=== PATIENT | female | born 1995 | race Caucasian/White ===

== ENCOUNTER → 2019-01-16 07:10 | Outpatient (CLI) | payer OTHER, SELFPAY ==
--- NOTE | 2019-01-16 07:12 | DI.US.S_ITS ---
PROCEDURE: US OB <= 14 WEEKS FETUS INDICATIONS: DATES OUTSIDE/PRIOR DATING DATA: Last menstrual period (LMP): 12/06/18. LMP-based estimated date of delivery (NADINE): 09/12/19. First dating scan (date and location): 01/16/19. Estimated date of delivery (NADINE) from first dating scan: 09/12/19. TECHNIQUE: Real-time scanning was performed of the fetus and maternal pelvic organs, with image documentation. Endovaginal scanning was also performed to better visualize the fetus and maternal ovaries. COMPARISON: None. FINDINGS: Embryo: Examination shows single intrauterine gestational sac with fetus and yolk sac seen. heart rate is 82 beats per minute. Brodnax-rump length measures 3 mm, with estimated gestational age of 5 weeks 6 days. There is no gross apparent gestational hemorrhage. Measurement variability in dating: +/- 4 weeks by LMP, +/- 7 days by mean sac diameter (use before 6 weeks gestation if crown-rump length not able to be measured), +/- 5 days by crown-rump length (up to 8 weeks 6 days gestation), +/- 7 days by crown-rump length (up to 13 weeks 6 days gestation). Maternal organs: 2.3 x 2 x 2 cm corpus luteum cyst in left ovary is seen. Right ovary is within normal limits. Limited images through the kidneys demonstrate no hydronephrosis. IMPRESSION: 1. Single live intrauterine with fetus a yolk sac seen. heart rate is 82 days per minute. Estimated gestational age is 5 weeks 6 days. 2. 2.3 x 2 x 2 cm corpus luteum cyst in left ovary. Dictated by: Valentin Erickson M.D. on 01/16/2019 at 9:32 Approved by: Valentin Erickson M.D. on 01/16/2019 at 9:35
== END ==
PROVIDERS: PCP Family Medicine; Visit Provider Family Medicine
DX: Z34.01 Encounter for supervision of normal first pregnancy, first trimester (principal); Z3A.01 Less than 8 weeks gestation of pregnancy
CPT/HCPCS: 76801; 76817

== ENCOUNTER → 2019-02-08 07:45 | Outpatient (CLI) | payer OTHER, SELFPAY ==
--- NOTE | 2019-02-08 07:46 | DI.US.S_ITS ---
PROCEDURE: US OB <= 14 WEEKS FETUS INDICATIONS: VIABILITY OUTSIDE/PRIOR DATING DATA: Last menstrual period (LMP): 12/06/18. LMP-based estimated date of delivery (NADINE): 09/12/19. First dating scan (date and location): 01/16/19. Estimated date of delivery (NADINE) from first dating scan: 09/12/19. TECHNIQUE: Real-time scanning was performed of the fetus and maternal pelvic organs, with image documentation. COMPARISON: [facility], , OB <= 14 WEEKS FETUS, 01/16/2019, 7:23. FINDINGS: Embryo: Single living intrauterine fetus is present with a crown-rump length measuring 2.5 cm, 9 weeks 1 day demonstrating expected interval growth. heart rate measures 160 beats per minute Measurement variability in dating: +/- 4 weeks by LMP, +/- 7 days by mean sac diameter (use before 6 weeks gestation if crown-rump length not able to be measured), +/- 5 days by crown-rump length (up to 8 weeks 6 days gestation), +/- 7 days by crown-rump length (up to 13 weeks 6 days gestation). Maternal organs: Ovaries grossly unremarkable. Limited images through the kidneys demonstrate no hydronephrosis. IMPRESSION: Single living intrauterine fetus as above. Dictated by: Werner Holder M.D. on 02/09/2019 at 9:08 Approved by: Werner Holder M.D. on 02/09/2019 at 9:16
== END ==
PROVIDERS: PCP Family Medicine; Visit Provider Family Medicine
DX: Z34.91 Encounter for supervision of normal pregnancy, unspecified, first trimester (principal); Z3A.09 9 weeks gestation of pregnancy
CPT/HCPCS: 76801

== ENCOUNTER → 2019-02-11 09:58 | Outpatient (CLI) | payer OTHER, SELFPAY ==
[2019-02-11 11:04] LABS: Add Manual Diff / Slide Review NO; Basophils Absolute Auto 0 /uL (0-100); Basophils Percent Auto 0.4 % (0-2); Eosinophils Absolute Auto 100 /uL (0-450); Eosinophils Percent Auto 1.6 % (2-4); Hematocrit 38.7 % (36-46); Hemoglobin 13.1 g/dL (12.0-16.0); Lymphocytes Absolute Auto 1500 /uL (1100-4500); Lymphocytes Percent Auto 18.1 % (25-40); Mean Corpuscular HGB Conc 33.8 % (30-36); Mean Corpuscular Hemoglobin 29.4 PG (26-34); Monocytes Absolute Auto 500 /uL (0-900); Monocytes Percent Auto 6.4 % (3-14); Neutrophils Absolute Auto 5900 /uL (1500-7000); Neutrophils Percent Auto 73.5 % (50-75); Red Blood Cell Count 4.45 X10^6/uL (4.0-5.2); Red Cell Distribution Width 13.3 % (11.6-14.8); White Blood Cell Count 8.1 X10^3/uL (4.5-11.0)
[2019-02-11 11:05] LABS: Appearance Urine UA CLEAR; Bilirubin Urine UA NEGATIVE (NEGATIVE); Color Urine UA YELLOW; Glucose Urine UA NEGATIVE (Negative); Ketones Urine UA NEGATIVE (NEGATIVE); Leukocyte Esterase Urine UA NEGATIVE (NEGATIVE); Nitrite Urine UA NEGATIVE (Negative); Occult Blood Urine UA NEGATIVE (Negative); Protein Urine UA NEGATIVE (Negative); Urobilinogen Urine UA 0.2 E.U./dL (0.2)
[2019-02-11 11:37] LABS: Platelet Count 134 X10^3/uL (150-400)
[2019-02-11 15:45] LABS: Hepatitis B Surface Antigen NEGATIVE s/c (NEGATIVE); Rubella Antibody IgG 46.7 IU/mL (>15)
[2019-02-11 16:02] LABS: HIV 1 & 2 Ab/Ag 4th Gen Combo NEGATIVE (NEGATIVE); Hep C Virus Ab w/Reflex Quant NEGATIVE s/c (NEGATIVE)
[2019-02-13 14:18] LABS: RPR Screen Nonreactive (Nonreactive)
== END ==
PROVIDERS: PCP Family Medicine; Visit Provider Family Medicine
DX: Z34.01 Encounter for supervision of normal first pregnancy, first trimester (principal)
CPT/HCPCS: 36415; 80055; 81003; 86787; 86803; 86850; 86900; 86901; 87086; 87389

== ENCOUNTER → 2019-03-26 11:06 | Outpatient (CLI) | payer OTHER, SELFPAY | PROVIDERS: PCP Family Medicine | DX: Z23 Encounter for immunization (principal) | CPT/HCPCS: 90471; 90686 ==

== ENCOUNTER → 2019-04-04 10:15 | Outpatient (CLI) | payer OTHER, SELFPAY ==
[2019-04-07 15:24] LABS: AFP, Serum 35.2 ng/mL; Brief History NTD NG; Calc Gestational Age 15.9; Cigarette Smoker NO; Donated Egg NG; Donor Egg Age NG; Estriol, Free 1.19 ng/mL; Inhibin A, Dimeric 117 pg/mL; Maternal Weight 140 lbs; Number of Fetuses 1; Previous Pregnancy Down Syndro NG; hCG, MoM 0.73; hCG, Serum 27.2 IU/mL
== END ==
PROVIDERS: PCP Family Medicine; Visit Provider Family Medicine
DX: Z34.90 Encounter for supervision of normal pregnancy, unspecified, unspecified trimester (principal); Z3A.16 16 weeks gestation of pregnancy
CPT/HCPCS: 36415; 82105; 82677; 84702; 86336

== ENCOUNTER → 2019-04-25 07:47 | Outpatient (CLI) | payer OTHER, SELFPAY ==
--- NOTE | 2019-04-25 07:47 | DI.US.S_ITS ---
PROCEDURE: OB >= 14 WEEKS FETUS INDICATIONS: ANATOMY OUTSIDE/PRIOR DATING DATA: Last menstrual period (LMP): 12/06/18. LMP-based estimated date of delivery (NADINE): 09/12/19 First dating scan (date and location): 01/16/19. Estimated date of delivery (NADINE) from first dating scan: 09/12/19. TECHNIQUE: Real-time scanning was performed of the fetus, with image documentation and biometric measurements. Endovaginal scanning: Not performed COMPARISON: [facility], OB <= 14 WEEKS FETUS, 02/08/2019, 7:57. [facility], OB <= 14 WEEKS FETUS, 01/16/2019, 7:23. FINDINGS: General: A single living intrauterine gestation is present. Presentation: Vertex. Placenta: Placental position is posterior, without previa. Amniotic fluid index: 12.7 cm, normal range is 5-24 cm. heart rate: 155 beats per minute. Maternal cervical canal: 3.7 cm long. Normal lower limit is 2.5 cm. biometrics: Biparietal diameter: 4.9 cm, 20 weeks 6 days Head circumference: 18.4 cm, 20 weeks 6 days Abdominal circumference: 15.8 cm, 21 weeks zero days Femur length: 3.6 cm, 21 weeks 2 days Estimated gestational age from initial scan: 20 weeks zero days Composite gestational age from present scan: 21 weeks zero days Estimated weight and percentile: 395 g, 94th percentile Measurement variability for biometric dating: +/- 7 days from 14 weeks to 15 weeks 6 days gestation, +/- 10 days from 16 weeks to 21 weeks 6 days gestation, +/- 2 weeks from 22 weeks to 27 weeks 6 days gestation, +/- 3 weeks for 28 weeks gestation or later. weight reference: 4500 g or EFW >90/95% is considered macrosomia or large for gestational age. EFW <10% is small for gestational age. EFW 5% or less is considered intra-uterine growth restriction. Anatomic survey: Neuro: Ventricles are non-dilated at less than 10 mm. Cisterna magna is normal at 3-11 mm. Cerebellum is normal in size and morphology. Nuchal skin fold: Normal at less than 6 mm between 14-21 weeks gestational age. Face: Nose and lips, facial profile are normal. Spine: No evidence for spina bifida. Heart: 4-chambered heart is present, with normal ventricular outflow tracts. Diaphragm: Diaphragm is intact. Stomach: Left-sided stomach is present. Kidneys: No hydronephrosis. Normal is less than 5 mm in 2nd trimester, less than 7 mm in 3rd trimester. Cord: 3-vessel cord has orthotopic insertion. Bladder: Normal in size. Extremities: All 4 extremities identified. Mild right maternal hydronephrosis. IMPRESSION: Single living intrauterine fetus in vertex presentation. Estimated weight at the 94th percentile. If clinically warranted, followup growth assessment ultrasound could be performed in 3-4 weeks to exclude developing macrosomia. Normal anatomic survey. Mild right maternal hydronephrosis presumably related. Dictated by: Werner Holder M.D. on 04/25/2019 at 10:28 Approved by: Werner Holder M.D. on 04/25/2019 at 10:41
== END ==
PROVIDERS: PCP Family Medicine; Visit Provider Family Medicine
DX: Z36.89 Encounter for other specified antenatal screening (principal); Z3A.21 21 weeks gestation of pregnancy
CPT/HCPCS: 76811

== ENCOUNTER → 2019-06-06 09:14 | Outpatient (CLI) | payer OTHER, SELFPAY ==
[2019-06-06 10:37] LABS: Hematocrit 35.4 % (36-46); Hemoglobin 12.2 g/dL (12.0-16.0)
[2019-06-06 10:48] LABS: GTT (PREG) 1 Hour PP 50gm Dose 59 mg/dL (76-139)
== END ==
PROVIDERS: PCP Family Medicine; Visit Provider Family Medicine
DX: Z34.90 Encounter for supervision of normal pregnancy, unspecified, unspecified trimester (principal); Z3A.26 26 weeks gestation of pregnancy
CPT/HCPCS: 36415; 82950; 85014; 85018

== ENCOUNTER → 2019-06-18 15:17 | Outpatient (CLI) | payer OTHER, SELFPAY ==
--- NOTE | 2019-06-18 15:18 | DI.US.S_ITS ---
PROCEDURE: US OB LIMITED INDICATIONS: follow up growth OUTSIDE/PRIOR DATING DATA: Last menstrual period (LMP): 12/06/18. LMP-based estimated date of delivery (NADINE): 09/12/19 First dating scan (date and location): 01/16/19. Estimated date of delivery (NADINE) from first dating scan: 09/12/19. TECHNIQUE: Real-time scanning was performed of the fetus, with image documentation and biometric measurements. Biophysical profile was also obtained. Endovaginal scanning: Not performed COMPARISON: [facility], OB >= 14 WEEKS FETUS, 04/25/2019, 8:05. [facility], OB <= 14 WEEKS FETUS, 02/08/2019, 7:57. [facility], OB <= 14 WEEKS FETUS, 01/16/2019, 7:23. FINDINGS: General: A single living intrauterine gestation is present. Presentation: Vertex. Placenta: Placental position is posterior, without previa. Amniotic fluid index: 15.8 cm, normal range is 5-24 cm. heart rate: 152 beats per minute. Maternal cervical canal: Not visualized biometrics: Biparietal diameter: 31 weeks 1 day Head circumference: 31 weeks 1 day Abdominal circumference: 29 weeks 1 day Femur length: 29 weeks 2 days Estimated gestational age from initial scan: 27 weeks and 5 days. Composite gestational age from present scan: 30 weeks 1 day Estimated weight and percentile: 1413 gm, 95th percentile Measurement variability for biometric dating: +/- 7 days from 14 weeks to 15 weeks 6 days gestation, +/- 10 days from 16 weeks to 21 weeks 6 days gestation, +/- 2 weeks from 22 weeks to 27 weeks 6 days gestation, +/- 3 weeks for 28 weeks gestation or later. weight reference: 4500 g or EFW >90/95% is considered macrosomia or large for gestational age. EFW <10% is small for gestational age. EFW 5% or less is considered intra-uterine growth restriction. Miscellaneous: Mild hydronephrosis in maternal right kidney has improved. There is trace right renal pelvises. IMPRESSION: 1. A single living intrauterine gestation is redemonstrated. 2. growth at the 95th percentile concerning for macrosomia. Recommend close clinical and imaging followup. 3. Mild maternal right hydronephrosis has improved. Dictated by: Sowmya Charlton M.D. on 06/18/2019 at 17:50 Approved by: Sowmya Charlton M.D. on 06/18/2019 at 17:56
== END ==
PROVIDERS: PCP Family Medicine; Visit Provider Family Medicine
DX: Z36.2 Encounter for other antenatal screening follow-up (principal); Z3A.30 30 weeks gestation of pregnancy
CPT/HCPCS: 76815

== ENCOUNTER → 2019-07-10 14:01 | Outpatient (CLI) | payer OTHER, SELFPAY ==
--- NOTE | 2019-07-26 09:41 | P.HOLT.S_ITS ---
Radiation Protection Engineer Report Referral & Results Date Patient Seen: 07/10/19 Requesting provider: Faith Lewis Indication: Palpitations Duration of monitoring (days): 7 Diary information: There were 3 patient diary entries and 3 patient triggered events These events and entries were associated with sinus rhythm only Data: Minimum heart rate identified was 51 beats per minute at 07:05 on 07/17/2019 Maximum sinus heart rate was 170 beats per minute at 09:53 on 07/12/2019 Less than 1% of identified beats rather ventricular supraventricular ectopic in origin Impression: No cardiac dysrhythmia to correlate with symptoms of palpitations identified on this study. No other serious or notable cardiac dysrhythmias identified either.
== END ==
PROVIDERS: PCP Family Medicine; Visit Provider Family Medicine
DX: R00.2 Palpitations (principal)
CPT/HCPCS: 0296T; 0298T

== ENCOUNTER → 2019-07-31 07:13 | Outpatient (CLI) | payer OTHER, SELFPAY ==
--- NOTE | 2019-07-31 07:13 | DI.US.S_ITS ---
PROCEDURE: US OB LIMITED INDICATIONS: MACROSOMIA OUTSIDE/PRIOR DATING DATA: Last menstrual period (LMP): 12/06/18. LMP-based estimated date of delivery (NADINE): 09/12/19 First dating scan (date and location): 01/16/19. Estimated date of delivery (NADINE) from first dating scan: 09/12/19. TECHNIQUE: Real-time scanning was performed of the fetus, with image documentation and biometric measurements. Endovaginal scanning: No COMPARISON: None. FINDINGS: General: A single living intrauterine gestation is present. Presentation: Vertex. Placenta: Placental position is posterior, without previa. Amniotic fluid index: 14.3 cm, normal range is 5-24 cm. heart rate: 147 beats per minute. Maternal cervical canal: 4.4 cm long. Normal lower limit is 2.5 cm. biometrics: Biparietal diameter: 36 weeks 4 days Head circumference: 35 weeks 4 days Abdominal circumference: 35 weeks 5 days Femur length: 36 weeks 2 days Estimated gestational age from initial scan: 33 weeks 6 days Composite gestational age from present scan: 36 weeks 0 days Estimated weight and percentile: 2 790 g; 93rd percentile Measurement variability for biometric dating: +/- 7 days from 14 weeks to 15 weeks 6 days gestation, +/- 10 days from 16 weeks to 21 weeks 6 days gestation, +/- 2 weeks from 22 weeks to 27 weeks 6 days gestation, +/- 3 weeks for 28 weeks gestation or later. weight reference: 4500 g or EFW >90/95% is considered macrosomia or large for gestational age. EFW <10% is small for gestational age. EFW 5% or less is considered intra-uterine growth restriction. Other: Not applicable. IMPRESSION: 1. Single living IUP redemonstrated and interval growth it is upper limits of normal with estimated weight at the 93rd percentile. Recommend close clinical correlation and followup to exclude developing macrosomia. Dictated by: Ta HERNANDEZ Interpreted: Pastora Key MD on 07/31/2019 at 8:22 Approved by: Pastora Key M.D. on 07/31/2019 at 16:29
== END ==
PROVIDERS: PCP Family Medicine; Visit Provider Family Medicine
DX: O36.63X0 Maternal care for excessive fetal growth, third trimester, not applicable or unspecified (principal); Z3A.36 36 weeks gestation of pregnancy
CPT/HCPCS: 76815

== ENCOUNTER → 2019-08-13 08:40 | Outpatient (CLI) | payer OTHER, SELFPAY ==
[2019-08-14 08:28] LABS: Strep Grp B PCR NEG for Grp B Strep
== END ==
PROVIDERS: PCP Family Medicine; Visit Provider Family Medicine
DX: Z34.90 Encounter for supervision of normal pregnancy, unspecified, unspecified trimester (principal); Z3A.36 36 weeks gestation of pregnancy
CPT/HCPCS: 87653

== ENCOUNTER 2019-09-04 04:12 | Inpatient (IN) | payer OTHER, SELFPAY ==
[2019-09-04] MEDS: LACTATED RINGERS 1,000 ML 100 ML IV ×3 (07:47→14:49)
[2019-09-04] MEDS: ONDANSETRON 4 MG/2 ML INJ IV ×2 (07:57→18:34)
--- NOTE | 2019-09-04 08:03 | P.HPOB_ITS ---
OB HPI Date/Time Date of admission: 09/04/19 Date Patient Seen: 09/04/19 Time Patient Seen: 07:30 History of Present Condition Chief complaint: evaluation of labor : 1 Para: 0 Estimated Date of Delivery: 09/12/19 Estimated Gestational Age (weeks): 38w6d Narrative: Renetta Moon is a 24 year old at 38 weeks and 6 days gestation. She reports contractions yesterday throughout the day which picked up in frequency and intensity at approximately 1:00 a.m. this morning. Denies bleeding or leaking of fluid and reports good movement. has been uncomplicated with the exception of concern for macrosomia. Gestational diabetes screen was negative. Estimated weight at the 93rd percentile at 34 weeks. History of Present care: initiated at week # (9), number of visits (12) and pounds weight gain (40) Dating criteria: LMP confirmed by 1st trimester US Ultrasounds: normal mid trimester US Obstetrical complications: none Medical complications: none Preadmission Labs Blood type: O (+) positive -: Antibody screen: negative, GBS status: negative, HBsAG: negative, HIV: negative and RPR/VDLR: negative -: Chlamydia screen: not detected and Gonorrhea screen: not detected -: Rubella: immune and Varicella: immune HCT: 38.7 PAP: Normal Quad screen: Normal Urine: Negative 1 hr GTT: 59 Evaluation Evaluation Baseline heart rate: 150 Variability: Moderate (11-25) monitor accelerations: Present monitor decelerations: Absent Contraction Frequency (minutes): 4 Uterine Contraction Intensity: Strong/Firm Cervical dilation (cm): 4 Cervical effacement (%): 100 station: -1 [facility] Medical History Acne (Chronic ~1996) Chicken pox (Resolved ~1998) Surgical History [place] teeth extracted (Acute) Family History Grandmother Cancer Grandmother Cancer Social History marital status: household members: spouse occupational status: employed Smoking Status: Never smoker alcohol intake: current substance use type: does not use Meds Home Medications and Allergies Home Medications Medication Instructions Recorded Confirmed Type prenat.vits,riccardo,tes-dhxf-hjpsr 1 tab PO DAILY 01/30/19 09/04/19 History Double Electric Breast Pump and #1 each 06/21/19 09/04/19 Rx supplies Allergies Allergy/AdvReac Type Severity Reaction Status Date / Time No Known Drug Allergies Allergy Verified 04/08/19 08:35 Review of Systems Constitutional Constitutional: Denies fatigue and Denies fever(s) Respiratory Respiratory: Denies cough Gastrointestinal Gastrointestinal: Reports nausea and Reports vomiting Genitourinary Comments: Denies bleeding or leaking Endocrine Endocrine: Denies fatigue Exam Vital Signs (past 8 hours): Temperature 36.8? blood pressure 110/69 heart rate 86 Const General: healthy appearing and comfortable HENMT Head: normal to inspection Ears: hearing grossly normal bilaterally Nose: external nose normal Face and sinus: normal facial exam Mouth: oral mucosae normal Eyes General: appearance normal, both eyes and all related structures Neck Neck: normal visual inspection Resp Effort & Inspection: normal respiratory effort Auscultation: clear to auscultation bilaterally Cardio Rate: regular rate Rhythm: regular rhythm Heart Sounds: no murmurs GI Other: Gravid External Female Exam: external appearance normal Manual OB Exam: dilated 4, effaced fully and station -1 Uterus Location (Fundal Height): 40 Presentation: vertex Estimated Weight (lbs): 8 Back/Spine/Pelvis Back: normal to inspection Skin General: no rashes or lesions noted Extrem General: normal to inspection and no pedal edema Objective Labs Result Diagrams: 09/04/19 08:00 Assessment and Plan Assessment and Plan Assessment and Plan narrative: 24-year-old at 39 weeks and 2 days gestation in active labor. GBS negative. Plan - Admit for labor, expectant management, epidural upon request
[2019-09-04 08:14] LABS: Hematocrit 37.4 % (36-46); Hemoglobin 12.4 g/dL (12.0-16.0); Mean Corpuscular HGB Conc 33.1 % (30-36); Mean Corpuscular Hemoglobin 28.7 PG (26-34); Mean Corpuscular Volume 86.7 fL (80-100); Platelet Count 123 X10^3/uL (150-400); Red Blood Cell Count 4.32 X10^6/uL (4.0-5.2); Red Cell Distribution Width 13.9 % (11.6-14.8); White Blood Cell Count 14.7 X10^3/uL (4.5-11.0)
[2019-09-04 08:18] LABS: Add Manual Diff / Slide Review YES
[2019-09-04 08:36] LABS: Neutrophils Absolute Manual 13230 /uL (3000-5900); RBC Morphology Normal Morphology; Total Cells Counted 100
[2019-09-04 08:37] LABS: Hypersegmented Neutrophils 1+
[2019-09-04 08:53] VITALS: BP 110/71
--- NOTE | 2019-09-04 12:11 | PM.OBPNLAB ---
Date/Time Date Patient Seen: 09/04/19 Time Patient Seen: 11:40 Pain Control Pain control: tolerating well and epidural Pelvic Exam Dilation (cm): 7 Effacement (%): 100 station: -1 Amniotic membrane status: Ruptured (Meconium) Contractions Contraction frequency (min): 6 Contraction intensity: Strong/Firm Status status: Category l Heart Rate Baseline: 130 Monitor Accelerations: Present Monitor Decelerations: Absent Monitor Variability: Moderate Assessment and Plan Assessment: active labor Plan: continuous present management Comments: AROM with meconium. Discussed that RT will be present at .
--- NOTE | 2019-09-04 12:33 | PM.AN.REGBLK ---
Regional Block Pre-procedure Procedure: Continuous Lumbar Epidural for L&D Attending OB provider: Latrice Kennedy PM/ROS narrative: term labor, no complications Hx: No personal or family history of anesthesia problems. ASA Class: II Labs: WBC 14.7 X10^3/uL (4.5-11.0) H 09/04/19 08:00 RBC 4.32 X10^6/uL (4.0-5.2) 09/04/19 08:00 Hgb 12.4 g/dL (12.0-16.0) 09/04/19 08:00 Hct 37.4 % (36-46) 09/04/19 08:00 MCV 86.7 fL (80-100) 09/04/19 08:00 MCH 28.7 PG (26-34) 09/04/19 08:00 MCHC 33.1 % (30-36) 09/04/19 08:00 RDW 13.9 % (11.6-14.8) 09/04/19 08:00 Plt Count 123 X10^3/uL (150-400) L 09/04/19 08:00 Neut % (Auto) Not Reportable 09/04/19 08:00 Lymph % (Auto) Not Reportable 09/04/19 08:00 Travis % (Auto) Not Reportable 09/04/19 08:00 Eos % (Auto) Not Reportable 09/04/19 08:00 Baso % (Auto) Not Reportable 09/04/19 08:00 Lymph # (Auto) Not Reportable 09/04/19 08:00 Travis # (Auto) Not Reportable 09/04/19 08:00 Baso # (Auto) Not Reportable 09/04/19 08:00 Total Counted 100 09/04/19 08:00 Seg Neutrophils % 90.0 % (38-70) H 09/04/19 08:00 Lymphocytes % (Manual) 5.0 % (25-45) L 09/04/19 08:00 Atypical Lymphs % 2.0 % (-0) H 09/04/19 08:00 Monocytes % (Manual) 3.0 % (2-11) 09/04/19 08:00 Neutrophils # (Manual) 41010 /uL (2368-7766) H 09/04/19 08:00 Hypersegmented Neuts 1+ 09/04/19 08:00 RBC Morphology Normal morphology 09/04/19 08:00 Medications: Current Medications Generic Name Dose Route Start Last Admin Trade Name Freq PRN Reason Stop Dose Admin Diphenhydramine HCl 25 mg 09/04/19 09:44 Benadryl IV Q10M PRN Pruritis Fentanyl 50 mcg 09/04/19 07:19 Sublimaze IV Q1H PRN Pain, Moderate (4-6) Lactated Ringer's 1,000 mls @ 100 mls/hr 09/04/19 07:30 09/04/19 10:14 Lactated Ringers IV 100 mls/hr CONT YVON Administration FENT 2MCG/ML BUPIV 0.125% EPI 200 mcg in 100 mls @ 8 mls/hr 09/04/19 09:45 Fentanyl/Bupiv/Ns 2mcg/Ml - 0.125% EPIDURAL CONT YVON Ondansetron HCl 4 mg 09/04/19 07:19 09/04/19 07:57 Zofran IV 4 mg Q4HR PRN Administration Nausea And Vomiting Allergies: Allergies Allergy/AdvReac Type Severity Reaction Status Date / Time No Known Drug Allergies Allergy Verified 04/08/19 08:35 Procedure Insertion date: 09/04/19 Insertion time: 11:00 Prep/Local: betadine x3 Interspace: L2-3 Patient position: sitting Needle: 18 gauge Hustead (27g Pencan through hustead for CSE, clear CSF, 1mL 0.25% bupiv MPF) Loss of resistance with: saline YULI at (cm): 3 Catheter placed at SKIN (cm): 9 Catheter in SPACE (cm): 6 Initial Medications TEST DOSE time: 10:58 TEST DOSE: 1.5% lidocaine with epinephrine 1:200k (mL): 3 Infusion INFUSION: 0.125% bupivacaine and with fentanyl 2 mcg/mL Initial rate (mL/hr): 8 Post-procedure Anesthesia time START: 10:50 Anesthesia time END: 18:49 Post-procedure Anesthesia Assessment: Yes CV function: HR/BP stable, Yes Resp function: RR/sat/airway adequate and Yes Pain control adequate
[2019-09-04] MEDS: OXYTOCIN PREMIX 30 UNIT/500 ML PLAST..BAG IV (17:58)
--- NOTE | 2019-09-04 19:57 | P.PCNOB_ITS ---
Labor & Delivery Delivery date: 09/04/19 Delivery augmentation: rupture of membranes Delivery monitor: external FHT Route of delivery: L&D Laceration Description: Perineal - 2nd Degree (Extending to anus) and Vaginal - 2nd Degree (Bilateral second-degree vaginal) Delivery repair: vicryl Estimated blood loss (mL): 450 Anesthesia type: Epidural Narrative: BRIEF HISTORY: Patient is a 24-year-old at weeks who gave on 09/04/19 at 18:49. NADINE: 09/12/2019 Hospital problems: 38 weeks of STAGE I: Labor First stage of labor began on 09/03/2019 at 20:00. Patient received an epidural with good pain control. AROM at 11:44 with thin meconium. Patient was complete at 14:00. FHT were category 1 throughout stage 1. STAGE II: Delivery Patient was complete at 14:00 and labored down for an hour. She pushed for nearly 4 hours and went on to deliver at 18:49. was vertex and ILA. was vigorous and immediately placed on mother's abdomen. Cord was clamped and cut after 1 minute delay. Apgars were 9 and 9. STAGE III: Placenta/Cord Placenta delivered at 18:57 after active management and appeared intact with a three vessel cord. Placenta notable for an accessory lobe. Patient sustained bilateral second degree vaginal lacerations with extension to the perineum and a midline perineal laceration extending to the top of the anus. No involvement of the rectum. All lacerations were repaired with 4-O vicryl with good approximation and hemostasis. EBL: 450 mL. Needle and sponge counts were correct. The vagina was inspected and no items were left in situ. Patient was doing well with Padma, her and at bedside. [place] Baby 1: Infant gender: Female Presentation: vertex position: Right Occiput Anterior Placenta delivery description: Spontaneous cord vessel description: 3 Vessels score (1 min): 9 score (5 min): 9
[2019-09-04] MEDS: KETOROLAC 30 MG/ML VIAL IV (21:20)
[2019-09-04] MEDS: DERMOPLAST SPRAY 20% 60 ML 1 SPRAY TOP (21:24)
[2019-09-04 22:31] VITALS: TEMP 37.5
[2019-09-04] MEDS: ACETAMINOPHEN 325 MG TABLET 650 MG PO (22:31)
[2019-09-04 23:01] VITALS: TEMP 37.4
[2019-09-05] MEDS: KETOROLAC 30 MG/ML VIAL IV (03:54)
[2019-09-05 06:09] LABS: Hemoglobin 9.4 g/dL (12.0-16.0)
[2019-09-05] MEDS: ACETAMINOPHEN 325 MG TABLET 650 MG PO ×2 (08:15→15:36)
[2019-09-05] MEDS: DOCUSATE 100 MG CAPSULE PO (08:15)
[2019-09-05] MEDS: PRENATAL VIT,CALC/IRON/FOLIC 1 TABLET 1 TAB PO (08:15)
[2019-09-05] MEDS: IBUPROFEN 600 MG TABLET PO ×2 (09:43→15:35)
--- NOTE | 2019-09-05 13:18 | P.DS_ITS ---
Discharge Providers Provider Date of admission: 09/04/19 04:12 Discharge Date: 09/05/19 Primary care physician: Faith Lewis DO Consults: 09/05/19 19:55 Consult to Steel Construction Worker Routine Comment: Discharge provider: Faith Lewis DO Summary Hospital Course Date Patient Seen: 09/05/19 Time Patient Seen: 13:00 Hospital Course: Patient is a 24-year-old G1 now P1 after spontaneous vaginal delivery on 09/04/19 at 38 weeks and 6 days gestation. Patient presented in active labor and received an epidural with good pain control. She had a prolonged second stage of 4 hours of active pushing then went on to deliver a vigorous female . She sustained bilateral vaginal tears with extension to the perineum and some extension near the anus but tearing was superficial without involvement of the muscle layers of the perineum. Lacerations were repaired with good hemostasis. patient did well. She did have acute blood loss anemia treated with iron. Denied lightheadedness with ambulation. Bleeding was moderate. Pain well controlled with ibuprofen. She was passing flatus and urinating without difficulty. She was having some difficulty with breast-feedin g requiring a nipple shield but met with and felt confident with the feeding plan. She was eager to go home. No issues in the . Patient was advised to call for fevers, severe pain or bleeding through more than a pad an hour. She will follow up in clinic in 6 weeks. Peripartum Data Infant Delivery Method: Natural Vaginal Laceration description: Vaginal - 2nd Degree (Extending to the top of anus) complications: none [place] 1: Gender: Female Disposition of : home Discharge Diagnosis (1) 38 weeks gestation of : Status: Acute (2) Acute blood loss anemia: Status: Acute (3) Spontaneous vaginal delivery: Status: Acute Time Spent with Patient Time attestation: Total time spent providing and/or coordinating discharge services: Objective Labs Result Diagrams: 09/05/19 05:50 Labs: Laboratory Results - last 24 hr 09/05/19 05:50 Hgb 9.4 L Hct 28.0 L Exam Vital Signs (past 8 hours): Temperature 98.3 BP 110/68 HR 88 RR 17 Narrative Exam Narrative: General: Awake and alert, no acute distress. HEENT: NCAT, EOMI, moist oral mucosa CV: Regular rate and rhythm, no murmurs, rubs or gallops Lungs: CTAB, no wheezes, rales, or rhonchi Abdomen: Soft, nontender; bowel tones active; uterus firm 1 cm below umbilicus Extremities: Warm, no edema, 2+ pedal pulses bilaterally Discharge Plan Discharge Plan Patient Disposition: Home Discharge comment: Call for fevers, severe pain or bleeding through more than a pad an hour Discharge orders & Medications Prescriptions: Continued (DME) Double Electric Breast Pump and supplies Qty: 1 RF: 0 prenat.vits,riccardo,nhv-iqgf-crsym tablet 1 tab PO DAILY RF: 0 Follow up/Referrals: Faith Lewis DO [Primary Care Provider] - 6 Weeks (please f/u w/ Dr. Lewis on October 20 @ 3:30pm) Visit Report/Discharge Packet Stand Alone Forms: Discharge: Care Visit Report Forms: Patient Portal/API, Stroke Signs & Symptoms Discharge Data Primary Care Provider: Faith Lewis
[2019-09-05 13:31] VITALS: BP 110/71; PULSE 88; TEMP 37.4
== END 2019-09-05 16:08 | disposition home or self-care (01) | DRG 806 ==
PROVIDERS: Admitting Provider Family Medicine; PCP Family Medicine; Referring Provider Family Medicine; Visit Provider Family Medicine
DX: O70.1 Second degree perineal laceration during delivery (principal); D62 Acute posthemorrhagic anemia; Z37.0 Single live birth; D64.9 Anemia, unspecified; Z3A.39 39 weeks gestation of pregnancy; O77.0 Labor and delivery complicated by meconium in amniotic fluid
CPT/HCPCS: 01967; 36415; 59050; 59400; 85014; 85018; 85025; 86850; 86900; 86901; G0379; J1885; J2405; J2590

== ENCOUNTER → 2019-10-31 12:42 | Outpatient (CLI) | payer OTHER, SELFPAY | PROVIDERS: PCP Family Medicine; Visit Provider Family Medicine | DX: O75.89 Other specified complications of labor and delivery (principal); R52 Pain, unspecified; Z39.2 Encounter for routine postpartum follow-up | CPT/HCPCS: 87210 ==

== ENCOUNTER → 2020-04-09 | Outpatient (CLI) | payer OTHER, SELFPAY | PROVIDERS: PCP Family Medicine; Referring Provider Internal Medicine; Visit Provider Internal Medicine | DX: Z23 Encounter for immunization (principal) | CPT/HCPCS: 90471; 90686 ==

== ENCOUNTER → 2020-09-17 16:21 | Outpatient (CLI) | payer OTHER, SELFPAY ==
[2020-09-17] MEDS: COVID-19 VACC #1, MRNA(MOD) 100 MCG/0.5 ML VIAL IM (16:27)
== END ==
PROVIDERS: PCP Family Medicine; Visit Provider Internal Medicine
DX: Z23 Encounter for immunization (principal)
CPT/HCPCS: 0011A; 91301

== ENCOUNTER → 2020-10-16 15:49 | Outpatient (CLI) | payer OTHER, SELFPAY ==
[2020-10-16] MEDS: COVID-19 VACC #2, MRNA(MOD) 100 MCG/0.5 ML VIAL IM (15:55)
== END ==
PROVIDERS: PCP Family Medicine; Visit Provider Internal Medicine
DX: Z23 Encounter for immunization (principal)
CPT/HCPCS: 0012A; 91301

== ENCOUNTER → 2021-01-07 13:02 | Outpatient (CLI) | payer OTHER, SELFPAY ==
[2021-01-07 15:33] LABS: Add Manual Diff / Slide Review NO; Basophils Absolute Auto 100 /uL (0-100); Basophils Percent Auto 0.6 % (0-2); Eosinophils Absolute Auto 100 /uL (0-450); Eosinophils Percent Auto 1.4 % (2-4); Hemoglobin 12.9 g/dL (12.0-16.0); Lymphocytes Absolute Auto 1600 /uL (1100-4500); Lymphocytes Percent Auto 19.7 % (25-40); Mean Corpuscular HGB Conc 34.1 % (30-36); Mean Corpuscular Hemoglobin 28.9 PG (26-34); Monocytes Absolute Auto 600 /uL (0-900); Monocytes Percent Auto 7.1 % (3-14); Neutrophils Absolute Auto 6000 /uL (1500-7000); Neutrophils Percent Auto 71.2 % (50-75); Platelet Count 147 X10^3/uL (150-400); Red Blood Cell Count 4.47 X10^6/uL (4.0-5.2); Red Cell Distribution Width 13.1 % (11.6-14.8); White Blood Cell Count 8.4 X10^3/uL (4.5-11.0)
[2021-01-07 15:58] LABS: Appearance Urine UA CLEAR; Bilirubin Urine UA NEGATIVE (NEGATIVE); Color Urine UA YELLOW; Glucose Urine UA NEGATIVE (Negative); Ketones Urine UA NEGATIVE (NEGATIVE); Leukocyte Esterase Urine UA NEGATIVE (NEGATIVE); Nitrite Urine UA NEGATIVE (Negative); Occult Blood Urine UA TRACE-LYSED (Negative); Protein Urine UA NEGATIVE (Negative); Specific Gravity Urine UA >=1.030 (1.000-1.035); Urobilinogen Urine UA 0.2 E.U./dL (0.2)
[2021-01-07 16:55] LABS: Hepatitis B Surface Antigen NEGATIVE s/c (NEGATIVE); Rubella Antibody IgG 38.4 IU/mL (>15)
[2021-01-07 17:16] LABS: Hep C Virus Ab w/Reflex Quant NEGATIVE s/c (NEGATIVE)
[2021-01-07 17:17] LABS: HIV 1 & 2 Ab/Ag 4th Gen Combo NEGATIVE (NEGATIVE)
[2021-01-08 06:36] LABS: RPR Screen Non Reactive (Non Reactive); Varicella IgG Antibody 715 index (Immune >165)
== END ==
PROVIDERS: PCP Family Medicine; Referring Provider Family Medicine; Visit Provider Family Medicine
DX: Z34.81 Encounter for supervision of other normal pregnancy, first trimester (principal)
CPT/HCPCS: 36415; 80055; 81003; 86787; 86803; 86850; 86900; 86901; 87086; 87389

== ENCOUNTER → 2021-01-08 08:13 | Outpatient (CLI) | payer OTHER, SELFPAY ==
--- NOTE | 2021-01-08 08:14 | DI.US.S_ITS ---
PROCEDURE: US OB <= 14 WEEKS FETUS INDICATIONS: DATES OUTSIDE/PRIOR DATING DATA: Last menstrual period (LMP): 11/15/20 LMP-based estimated date of delivery (NADINE): 08/22/20. First dating scan (date and location): 01/08/21, this study. Estimated date of delivery (NADINE) from first dating scan: 08/20/20. TECHNIQUE: Real-time scanning was performed of the fetus and maternal pelvic organs, with image documentation. Endovaginal scanning was also performed to better visualize the fetus and maternal ovaries. COMPARISON: [facility], OB <= 14 WEEKS FETUS, 02/08/2019, 7:57. [facility], OB <= 14 WEEKS FETUS, 01/16/2019, 7:23. FINDINGS: Embryo: 1.6 cm crown-rump length correlates with a gestational age of 8 weeks 0 days, +/-5 days. Heart rate: 163 Measurement variability in dating: +/- 4 weeks by LMP, +/- 7 days by mean sac diameter (use before 6 weeks gestation if crown-rump length not able to be measured), +/- 5 days by crown-rump length (up to 8 weeks 6 days gestation), +/- 7 days by crown-rump length (up to 13 weeks 6 days gestation). Maternal organs: Ovaries normal considering gestational status . IMPRESSION: Early 1st trimester gestation, 8 weeks 0 days gestational age, delivery date projected to be centered on 08/20/20, +/-5 days. Dictated by: Donato Alejandro M.D. on 01/08/2021 at 13:57 Approved by: Donato Alejandro M.D. on 01/08/2021 at 13:58
== END ==
PROVIDERS: PCP Family Medicine; Referring Provider Family Medicine; Visit Provider Family Medicine
DX: Z34.81 Encounter for supervision of other normal pregnancy, first trimester (principal); Z3A.08 8 weeks gestation of pregnancy
CPT/HCPCS: 76801; 76817

== ENCOUNTER → 2021-03-12 09:29 | Outpatient (CLI) | payer OTHER, SELFPAY ==
[2021-03-15 14:38] LABS: AFP, Serum 34.2 ng/mL (.); Calc Gestational Age Ultrasound (.); Estriol, Free 0.85 ng/mL (.); Inhibin A, MoM 0.78 (.); Maternal Ethnicity Caucasian (.); Maternal Weight 140 lbs (.); Number of Fetuses No (.); OSBR Risk 1 IN 10000 (.); Results Report (.); Test Results *Screen Negative* (.); hCG, MoM 0.52 (.); hCG, Serum 17755 mIU/mL (.)
== END ==
PROVIDERS: PCP Family Medicine; Referring Provider Family Medicine; Visit Provider Family Medicine
DX: Z34.90 Encounter for supervision of normal pregnancy, unspecified, unspecified trimester (principal); Z3A.17 17 weeks gestation of pregnancy
CPT/HCPCS: 36415; 82105; 82677; 84702; 86336

== ENCOUNTER → 2021-04-05 14:45 | Outpatient (CLI) | payer OTHER, SELFPAY ==
--- NOTE | 2021-04-05 14:46 | DI.US.S_ITS ---
PROCEDURE: US OB >= 14 WEEKS FETUS INDICATIONS: anatomy scan OUTSIDE/PRIOR DATING DATA: Last menstrual period (LMP): 11/15/2020. LMP-based estimated date of delivery (NADINE): 08/22/2020. First dating scan (date and location): 01/08/2021. Estimated date of delivery (NADINE) from first dating scan: 08/20/2020. TECHNIQUE: Real-time scanning was performed of the fetus, with image documentation and biometric measurements. COMPARISON: [facility], OB >= 14 WEEKS FETUS, 04/25/2019, 8:05. FINDINGS: General: A single living intrauterine gestation is present. Presentation: Variable. Placenta: Placental position is anterior, without previa. Amniotic fluid index: 12.8 cm, normal range is 5-24 cm. heart rate: 144 beats per minute. Maternal cervical canal: 3.8 cm long. Normal lower limit is 2.5 cm. biometrics: Biparietal diameter: 4.9 cm, 20 weeks, 6 days Head circumference: 18.3 cm, 20 weeks, 5 days Abdominal circumference: 15.4 cm, 20 weeks, 4 days Femur length: 3.5 cm, 21 weeks, 0 day Estimated gestational age from initial scan: 20 weeks, 3 days Composite gestational age from present scan: 20 weeks, 6 days Estimated weight and percentile: 374 grams, 63 percent Measurement variability for biometric dating: +/- 7 days from 14 weeks to 15 weeks 6 days gestation, +/- 10 days from 16 weeks to 21 weeks 6 days gestation, +/- 2 weeks from 22 weeks to 27 weeks 6 days gestation, +/- 3 weeks for 28 weeks gestation or later. weight reference: 4500 g or EFW >90/95% is considered macrosomia or large for gestational age. EFW <10% is small for gestational age. EFW 5% or less is considered intra-uterine growth restriction. Anatomic survey: Neuro: Ventricles are non-dilated at less than 10 mm. Cisterna magna is normal at 3-11 mm. Cerebellum is normal in size and morphology. Nuchal skin fold: Normal at less than 6 mm between 14-21 weeks gestational age. Face: Nose and lips, facial profile are normal. Spine: No evidence for spina bifida. Heart: 4-chambered heart is present, with normal ventricular outflow tracts. Diaphragm: Diaphragm is intact. Stomach: Left-sided stomach is present. Kidneys: No hydronephrosis. Normal is less than 5 mm in 2nd trimester, less than 7 mm in 3rd trimester. Cord: 3-vessel cord has orthotopic insertion. Bladder: Normal in size. Extremities: All 4 extremities identified. IMPRESSION: Single live intrauterine with fetus in variable presentation. Normal amount of amniotic fluid. heart rate is 144 beats per minute. Estimated weight is at 63 percent. Normal anatomic survey. Dictated by: Valentin Erickson M.D. on 04/05/2021 at 16:24 Approved by: Valentin Erickson M.D. on 04/05/2021 at 16:26
== END ==
PROVIDERS: PCP Family Medicine; Referring Provider Family Medicine; Visit Provider Family Medicine
DX: Z36.89 Encounter for other specified antenatal screening (principal); Z3A.20 20 weeks gestation of pregnancy
CPT/HCPCS: 76811

== ENCOUNTER → 2021-05-14 08:19 | Outpatient (CLI) | payer OTHER, SELFPAY ==
[2021-05-14] MEDS: COVID-19 VACC #3, MRNA(MOD) 50 MCG/0.25 ML VIAL IM (08:24)
== END ==
PROVIDERS: PCP Family Medicine; Visit Provider Internal Medicine
DX: Z23 Encounter for immunization (principal)
CPT/HCPCS: 0013A; 91301

== ENCOUNTER → 2021-05-19 08:27 | Outpatient (CLI) | payer OTHER, SELFPAY ==
[2021-05-19 10:13] LABS: Hematocrit 35.2 % (36-46); Hemoglobin 11.8 g/dL (12.0-16.0)
[2021-05-19 10:25] LABS: GTT (PREG) 1 Hour PP 50gm Dose 73 mg/dL (76-139)
== END ==
PROVIDERS: PCP Family Medicine; Referring Provider Family Medicine; Visit Provider Family Medicine
DX: Z34.92 Encounter for supervision of normal pregnancy, unspecified, second trimester (principal); Z3A.26 26 weeks gestation of pregnancy
CPT/HCPCS: 36415; 82950; 85014; 85018

== ENCOUNTER → 2021-07-22 13:27 | Outpatient (CLI) | payer OTHER, SELFPAY ==
[2021-07-23 11:55] LABS: Strep Grp B PCR NEG for Grp B Strep
== END ==
PROVIDERS: PCP Family Medicine; Referring Provider Family Medicine; Visit Provider Family Medicine
DX: Z34.93 Encounter for supervision of normal pregnancy, unspecified, third trimester (principal); Z3A.36 36 weeks gestation of pregnancy
CPT/HCPCS: 87653

== ENCOUNTER 2021-08-13 17:05 | Inpatient (IN) | payer OTHER, SELFPAY ==
[2021-08-13 18:22] LABS: Add Manual Diff / Slide Review NO; Basophils Absolute Auto 0 /uL (0-100); Basophils Percent Auto 0.4 % (0-2); Eosinophils Absolute Auto 300 /uL (0-450); Eosinophils Percent Auto 2.5 % (2-4); Hematocrit 36.3 % (36-46); Hemoglobin 12.5 g/dL (12.0-16.0); Lymphocytes Absolute Auto 1800 /uL (1100-4500); Lymphocytes Percent Auto 16.4 % (25-40); Mean Corpuscular HGB Conc 34.5 % (30-36); Mean Corpuscular Hemoglobin 29.3 PG (26-34); Monocytes Absolute Auto 700 /uL (0-900); Neutrophils Absolute Auto 8200 /uL (1500-7000); Neutrophils Percent Auto 74.7 % (50-75); Platelet Count 118 X10^3/uL (150-400); Red Blood Cell Count 4.28 X10^6/uL (4.0-5.2); Red Cell Distribution Width 14.6 % (11.6-14.8); White Blood Cell Count 10.9 X10^3/uL (4.5-11.0)
[2021-08-13 18:48] LABS: COVID19 -Nasal RAPID Negative (Negative)
[2021-08-13] MEDS: LACTATED RINGERS 1,000 ML 100 ML IV ×2 (19:00→20:06)
[2021-08-13] MEDS: ONDANSETRON 4 MG/2 ML INJ IV (19:04)
--- NOTE | 2021-08-13 19:44 | PM.AN.REGBLK ---
Regional Block Pre-procedure Procedure: Continuous Lumbar Epidural for L&D Attending OB provider: Faith Lewis PMH/ROS narrative: Hx: No personal or family history of anesthesia problems. PSH/Anesthesia history narrative: previous epidural without issues Exam narrative: RRR CTAB ASA Class: II Labs: Hct 36.3 % (36-46) 08/13/21 18:00 Plt Count 118 X10^3/uL (150-400) L 08/13/21 18:00 Medications: Current Medications Generic Name Dose Route Start Last Admin Trade Name Freq PRN Reason Stop Dose Admin Calcium Carbonate 1,000 mg 08/13/21 17:27 Calcium Carbonate 500 Mg Tab PO Q2HR PRN Dyspepsia Carboprost Tromethamine 250 mcg 08/13/21 17:27 Carboprost 250 Mcg/Ml Ampul IM Q90M PRN Bleeding Fentanyl 50 mcg 08/13/21 17:27 Fentanyl 100 Mcg/2 Ml Inj IV Q1H PRN Pain, Moderate (4-6) Lactated Ringer's 1,000 mls @ 100 mls/hr 08/13/21 17:30 08/13/21 19:00 Lactated Ringers IV 100 mls/hr CONT YVON Administration Oxytocin/Lactated Ringer's 30 unit in 500 mls @ 200 mls/hr 08/13/21 17:27 Oxytocin Premix IV CONT PRN Bleeding Protocol Tranexamic Acid 1,000 mg/ 100 mls @ 200 mls/hr 08/13/21 17:27 Sodium Chloride IV NOW PRN Bleeding Methylergonovine Maleate 0.2 mg 08/13/21 17:27 Methylergonovine 0.2 Mg Tablet PO Q6HR PRN Heavy Bleeding Methylergonovine Maleate 0.2 mg 08/13/21 17:27 Methylergonovine 0.2 Mg/Ml Vial IM NOW PRN Bleeding Misoprostol 800 mcg 08/13/21 17:27 Misoprostol 200 Mcg Tablet MO NOW PRN Bleeding Misoprostol 1,000 mcg 08/13/21 17:27 Misoprostol 200 Mcg Tablet MO NOW PRN Bleeding Misoprostol 400 mcg 08/13/21 17:27 Misoprostol 200 Mcg Tablet SL NOW PRN Bleeding Ondansetron HCl 4 mg 08/13/21 17:27 08/13/21 19:04 Ondansetron 4 Mg/2 Ml Inj IV 4 mg Q4HR PRN Administration Nausea And Vomiting Oxytocin 10 unit 08/13/21 17:27 Oxytocin 10 Unit/Ml Vial IM NOW PRN Bleeding Allergies: Allergies Allergy/AdvReac Type Severity Reaction Status Date / Time No Known Drug Allergies Allergy Verified 07/30/21 11:20 Procedure Insertion date: 08/13/21 Insertion time: 19:16 Prep/Local: betadine x3 (chloroprep) and 1% lidocaine Interspace: L2-3 Patient position: sitting Needle: 18 gauge [employer]tead (with 27G pencil point needle-through needle for IT dose) Loss of resistance with: saline (with air bubble) YULI at (cm): 5 Catheter placed at SKIN (cm): 10 Catheter in SPACE (cm): 5 Insertion: Yes CSF, No Blood, No Paresthesia with insertion, No Paresthesia with injection and No Test dose reaction Initial Medications TEST DOSE: 1.5% lidocaine with epinephrine 1:200k (mL): 5 (3mL initial test dose, 2mL as part of first bolus) BOLUS DOSE time: 19:19 BOLUS DOSE (mL): 2 BOLUS DOSE med: other (10mcg fentanyl intrathecally, 90mcg fentanyl via epidural catheter) Infusion INFUSION: 0.0625% bupivacaine and with fentanyl 2 mcg/mL Initial rate (mL/hr): 12 (with bolus of 4mL Q15min lockout) Post-procedure Anesthesia time START: 19:04 Anesthesia time END: 20:36 Post-procedure Anesthesia Assessment: No Anesthesia complications
--- NOTE | 2021-08-13 20:29 | P.HPOB_ITS ---
OB HPI Date/Time Date of admission: 08/13/21 Date Patient Seen: 08/13/21 Time Patient Seen: 20:15 History of Present Condition Chief complaint: NADINE Calculator Estimated Delivery Date Method Current WG Current Estimate 08/22/21 LMP (Certain) 38w 5d Other Estimates 08/20/21 Ultrasound #1 39w 0d : 2 Para: 1 Narrative: 26 year old at 38 weeks and 5 days in active labor. Contractions began at 3 AM and gradually built throughout the day. Denies leaking or bleeding and reports good movement. care: good care, initiated at week # (10), number of visits (12) and pounds weight gain (43) Dating criteria OB: LMP confirmed by 1st trimester US Ultrasounds: normal mid trimester US Obstetrical complications: none Medical complications OB: none Preadmission Labs Last OB Lab Results: Blood Type O Positive 08/13/21 18:00 08/13/21 Antibody Screen Negative 08/13/21 18:00 08/13/21 Hematocrit 36.3 % (36-46) 08/13/21 18:00 08/13/21 Hemoglobin 12.5 g/dL (12.0-16.0) 08/13/21 18:00 08/13/21 Hepatitis B Surface Antigen Negative s/c (NEGATIVE) 01/07/21 13:18 01/07/21 Hepatitis C Antibody Negative s/c (NEGATIVE) 01/07/21 13:18 01/07/21 Rubella Antibody 38.4 IU/mL (>15) 01/07/21 13:18 01/07/21 Varicella-Zoster IgG Antibody 715 index (Immune >165) 01/07/21 13:18 01/07/21 Glucose 1 Hour 73 mg/dL (76-139) L 05/19/21 08:44 05/19/21 Group B Streptococcus (PCR) Neg for grp b strep 07/22/21 13:27 07/22/21 -: Chlamydia screen: negative, Gonorrhea screen: negative and Urine: negative -: PAP smear: Normal Genetic Screens: Quad screen: Normal External Labs -: Urine: negative Prior (ies) Past Pregnancies Del. Date GA/Weeks Labor Lgth Wt Sex Route Outcome Anesthesia Place Delv Breastfeed Preg Comp Name 09/04/19 38.6 12 8 lb 13.1 oz Female vaginal live - full term epidural I[facility] Dr Lewis 12 months other Padma Nimo Delivery Date: 09/04/19 Last Updated by: Arlet Mackay R.N. *2nd Tear with Repair (vaginal and perineal) : 4 hour 2nd Stage with 450 EBL. *Did well PP despite 2020 and the Pandemic. Evaluation Evaluation Baseline heart rate: 120 Variability: Moderate (11-25) monitor accelerations: Present Monitor Decelerations: Absent Contraction Frequency (minutes): 2 Status: Category l Dilation (cm): 8 Effacement (%): 100 station: -2 [facility] Medical History 38 weeks gestation of Acne (~1996) Anxiety Chicken pox (~1998) Spontaneous vaginal delivery (~09/04/19) Surgical History [place] teeth extracted Family History Grandmother Cancer Diabetes mellitus Pulmonary embolism Grandmother Cancer Bipolar 1 disorder Mother Hypothyroid Migraine Stress ulcer of stomach Varicose veins of both lower extremities Father Migraine Grandfather Cancer Prostate cancer Heart disease Grandfather Prostate cancer Cancer Metastatic cancer Brother Bipolar disorder Depression Migraine Epilepsy Altered renal tissue perfusion Social History marital status: number of children: 1 household members: spouse and children lives independently: Yes pets and animals: Yes (X 2 cats : aware; X 1 dog) 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[employer]) current occupational exposures/hazards: No aly/hinduism: Yazidism special aly needs: No Smoking Status: Never smoker second hand exposure: No alcohol intake: former (pre- : occasional/social ) substance use type: does not use Meds Home Medications and Allergies Home Medications Medication Instructions Recorded Confirmed Type prenat.vits,riccardo,[id number] 1 tab PO DAILY 01/30/19 07/30/21 History docusate sodium 100 mg capsule 100 mg PO .PRN cap 01/18/21 07/30/21 History Allergies Allergy/AdvReac Type Severity Reaction Status Date / Time No Known Drug Allergies Allergy Verified 07/30/21 11:20 Review of Systems Review of Systems ROS: Yes All systems reviewed with the patient and are negative except as otherwise documented OB Exam HENMT Head: normal to inspection Mouth: oral mucosae normal Eyes General: appearance normal, both eyes and all related structures Resp Effort & Inspection: normal respiratory effort Cardio Rate: regular rate Extremities Lower extremity: Yes normal to inspection; No edema Presentation: vertex Estimated Weight (lbs): 8 Objective Labs Result Diagrams: 08/13/21 18:00 Labs: Laboratory Results - last 24 hr 08/13/21 08/13/21 08/13/21 18:00 18:00 18:00 WBC 10.9 RBC 4.28 Hgb 12.5 Hct 36.3 MCV 85.0 MCH 29.3 MCHC 34.5 RDW 14.6 Plt Count 118 L Neut % (Auto) 74.7 Lymph % (Auto) 16.4 L [place] % (Auto) 6.0 Eos % (Auto) 2.5 Baso % (Auto) 0.4 Neut # (Auto) 8200 H Lymph # (Auto) 1800 [place] # (Auto) 700 Eos # (Auto) 300 Baso # (Auto) 0 SARS-CoV-2 (PCR) Negative Blood Type O Positive Antibody Screen Negative Assessment and Plan Assessment and Plan Assessment and Plan narrative: 26-year-old at 38 weeks and 5 days gestation in active labor. GBS negative, COVID negative. Now comfortable with epidural. Anticipate .
[2021-08-13] MEDS: OXYTOCIN 10 UNIT/ML VIAL IM (22:45)
--- NOTE | 2021-08-13 22:55 | PM.OBPRVD ---
Labor & Delivery Delivery date: 08/13/21 Delivery augmentation: rupture of membranes Delivery monitor: external FHT Route of delivery: L&D Laceration Description: Vaginal - 1st Degree Delivery repair: chromic Estimated blood loss (mL): 150 Anesthesia Type: Epidural Narrative: Patient is a 26-year-old at 38+5 weeks who gave on 08/13/21 at 10:36 p.m. NADINE: 08/22/21 Hospital problems: 38 weeks of Spontaneous vaginal delivery STAGE I: Labor Patient presented in active labor and went on to receive an epidural with excellent pain control. Artificial rupture membranes occurred at 9:08 p.m. with clear fluid. She was complete at 10:09 p.m.. heart tones were category 1 throughout stage I. First stage of labor approximately 9 hours. STAGE II: Delivery Patient was complete and pushed for 27 minutes. She went on to deliver a vigorous male at 10:36 p.m.. was vertex and ILA. No nuchal cord. Infant was immediately placed on mother's abdomen. Cord was clamped and cut after approximately 1 minute delay. Apgars were 9 and 9. No resuscitation of the required. STAGE III: Placenta/Cord Placenta delivered at 10:40 p.m.. IM Pitocin given after delivery of placenta. A short right first-degree vaginal laceration was repaired due to bleeding with good hemostasis. There were no other lacerations. Fundus was firm below umbilicus after repair and hemostasis assured. EBL: 150 mL. Needle and sponge counts were correct. The vagina was inspected and no items were left in situ. Patient was doing well with William, her and and mother at bedside. Baby 1: Infant gender: Male Presentation: vertex Position: Right Occiput Anterior Placenta delivery description: Spontaneous Cord Vessel Description: 3 Vessels score (1 min): 9 score (5 min): 9 Plan for aftercare: Routine care
[2021-08-13 23:14] VITALS: BP 103/78
[2021-08-14] MEDS: IBUPROFEN 600 MG TABLET PO ×2 (03:40→11:58)
--- NOTE | 2021-08-14 09:28 | PM.OBDS.1 ---
Discharge Providers Provider Date of admission: 08/13/21 17:05 Discharge Date: 08/14/21 Primary care physician: Faith Lewis DO Consults: 08/14/21 22:58 Consult to Coal Crusher Operator Routine Comment: Discharge provider: Faith Lewis DO Summary Hospital Course Date Patient Seen: 08/14/21 Time Patient Seen: 08:45 Diagnoses: 38 weeks of Epidural analgesia Spontaneous vaginal Hospital Course: 26-year-old after uncomplicated spontaneous vaginal delivery. She presented in active labor, received an epidural and went on to deliver a vigorous male weighing 4158 g. She had a small first-degree vaginal laceration which was repaired due to bleeding with good hemostasis. course uncomplicated. She is ambulating, voiding, tolerating diet and well. Vaginal bleeding as expected without concerns. No issues in the . She will discharge home today and follow-up in clinic in 6 weeks however we will be seeing her in 2 days with her should any concerns arise. Patient to call for fevers, severe pain or bleeding through more than a pad an hour. Peripartum Data Infant Delivery Method: Natural Vaginal Laceration Description: Vaginal - 1st Degree complications: none [place] 1: Gender: Male Disposition of : home Status at Discharge Cognitive/behavioral status at discharge: at baseline, oriented Functional status at discharge: independent ambulation Overall status at discharge: patient is progressing back to baseline Time Spent with Patient Time attestation: Total time spent providing and/or coordinating discharge services: Time spent: Less than 30 minutes Objective Labs Result Diagrams: 08/13/21 18:00 Labs: Laboratory Results - last 24 hr 08/13/21 08/13/21 08/13/21 18:00 18:00 18:00 WBC 10.9 RBC 4.28 Hgb 12.5 Hct 36.3 MCV 85.0 MCH 29.3 MCHC 34.5 RDW 14.6 Plt Count 118 L Neut % (Auto) 74.7 Lymph % (Auto) 16.4 L [place] % (Auto) 6.0 Eos % (Auto) 2.5 Baso % (Auto) 0.4 Neut # (Auto) 8200 H Lymph # (Auto) 1800 [place] # (Auto) 700 Eos # (Auto) 300 Baso # (Auto) 0 SARS-CoV-2 (PCR) Negative Blood Type O Positive Antibody Screen Negative Exam Vital Signs (past 8 hours): Temperature 98.8? blood pressure 104/60 heart rate 105 respirations 16 Narrative Exam Narrative: General: Awake and alert, no acute distress. HEENT: NCAT, EOMI, moist oral mucosa CV: Regular rate and rhythm, no murmurs, rubs or gallops Lungs: CTAB, no wheezes, rales, or rhonchi Abdomen: Soft, nontender; bowel tones active; uterus firm 1 cm below umbilicus Extremities: Warm, no edema Discharge Plan Discharge Plan Patient Disposition: Home Discharge orders & Medications Prescriptions: New ibuprofen 600 mg Tablet 600 mg PO Q6HR PRN (Reason: Pain, Mild (1-3)) Qty: 30 0RF Continued docusate sodium 100 mg capsule 100 mg PO .PRN 0RF Discontinued prenat.vits,riccardo,[id number] tablet 1 tab PO DAILY 0RF Follow up/Referrals: Faith Lewis DO [Primary Care Provider] - 6 Weeks Diet/Activity/Treatments Diet: Diet as Tolerated Skin/Wound/Dressing Care Report to your healthcare provider any signs of infection, such as:: chills, fever, night sweats, increased pain, unusual drainage and unusual redness Visit Report/Discharge Packet Visit Report Forms: Patient Portal/API, Stroke Signs & Symptoms Discharge Data Primary Care Provider: Faith Lewis
[2021-08-14 16:38] VITALS: BP 103/78
== END 2021-08-14 16:40 | disposition home or self-care (01) | DRG 807 ==
PROVIDERS: Admitting Provider Family Medicine; PCP Family Medicine; Referring Provider Family Medicine; Visit Provider Family Medicine
DX: O70.0 First degree perineal laceration during delivery (principal); Z37.0 Single live birth; Z3A.38 38 weeks gestation of pregnancy; Z20.822 Contact with and (suspected) exposure to COVID-19
CPT/HCPCS: 01967; 36415; 59050; 59400; 85025; 86850; 86900; 86901; 87635; C9803; G0379; J2405; J2590; J3010

== ENCOUNTER → 2022-04-15 14:36 | Outpatient (CLI) | payer OTHER, SELFPAY | PROVIDERS: PCP Family Medicine; Referring Provider Internal Medicine; Visit Provider Internal Medicine | DX: Z23 Encounter for immunization (principal) | CPT/HCPCS: 90471; 90686 ==

== ENCOUNTER → 2022-06-24 13:15 | Outpatient (CLI) | payer OTHER, SELFPAY ==
[2022-06-24 15:51] LABS: Influenza A - CEPHEID Flu A NEGATIVE (NEGATIVE); Influenza B - CEPHEID Flu B NEGATIVE (NEGATIVE); Respiratory Syncytial Virus POSITIVE (Negative)
[2022-06-24 15:53] LABS: COVID-19 CEPHEID 4-PLEX PCR Negative (Negative)
== END ==
PROVIDERS: PCP Family Medicine; Visit Provider Family Medicine
DX: R50.9 Fever, unspecified (principal)
CPT/HCPCS: 0241U

== ENCOUNTER → 2023-04-11 15:40 | Outpatient (CLI) | payer OTHER, SELFPAY | PROVIDERS: PCP Family Medicine; Referring Provider Family Medicine; Visit Provider Family Medicine | DX: Z23 Encounter for immunization (principal) | CPT/HCPCS: 90471; 90686 ==

== ENCOUNTER → 2024-04-03 18:45 | Outpatient (CLI) | payer OTHER, SELFPAY | PROVIDERS: PCP Family Medicine; Referring Provider Internal Medicine; Visit Provider Internal Medicine | DX: Z23 Encounter for immunization (principal) | CPT/HCPCS: 90471; 90656 ==

== ENCOUNTER → 2025-07-02 13:59 | Outpatient (CLI) | payer OTHER, SELFPAY ==
[2025-07-02 15:07] LABS: Add Manual Diff / Slide Review NO; Hematocrit 37.1 % (36-46); Hemoglobin 12.7 g/dL (12.0-16.0); Lymphocytes Absolute Auto 1400 /uL (1100-4500); Mean Corpuscular HGB Conc 34.2 % (30-36); Mean Corpuscular Hemoglobin 28.9 PG (26-34); Mean Corpuscular Volume 84.7 fL (80-100); Platelet Count 152 X10^3/uL (150-400)
[2025-07-02 16:34] LABS: Appearance Urine UA CLEAR; Bilirubin Urine UA NEGATIVE (NEGATIVE); Color Urine UA YELLOW; Glucose Urine UA NEGATIVE (Negative); Ketones Urine UA TRACE (NEGATIVE); Leukocyte Esterase Urine UA NEGATIVE (NEGATIVE); Nitrite Urine UA NEGATIVE (Negative); Occult Blood Urine UA TRACE-INTACT (Negative); Protein Urine UA NEGATIVE (Negative); Specific Gravity Urine UA >=1.030 (1.000-1.035); Urobilinogen Urine UA 0.2 E.U./dL (0.2)
[2025-07-02 16:35] LABS: pH Urine UA 5.5 (4.5-8.0)
[2025-07-03 15:29] LABS: Hepatitis B Surface Antigen NEGATIVE s/c (NEGATIVE)
[2025-07-03 15:47] LABS: HIV 1 & 2 Ab/Ag 4th Gen Combo NEGATIVE (NEGATIVE); Hep C Virus Ab w/Reflex Quant NEGATIVE s/c (NEGATIVE)
== END ==
PROVIDERS: PCP Family Medicine; Referring Provider Family Medicine; Visit Provider Family Medicine
DX: Z34.80 Encounter for supervision of other normal pregnancy, unspecified trimester (principal)
CPT/HCPCS: 80055; 81003; 86787; 86803; 86850; 86900; 86901; 87086; 87389